=== PATIENT | female | born 1955 | race Caucasian/White ===

== ENCOUNTER 2022-04-28 16:17 | Inpatient (IN) | payer OTHER, MEDICARE ==
[~2022-04-28] VITALS: Ht 154.9 cm; Wt 63.5 kg
--- NOTE | 2022-04-28 18:15 | NUR ---
Received pt 67yrs female came from home for low hg b hx anemia diness any active bleeding
--- NOTE | 2022-04-28 18:20 | NUR ---
Examin by DR EUBANKS at bed side
--- NOTE | 2022-04-28 18:30 | NUR ---
BLOOD DROW by lab tach
--- NOTE | 2022-04-28 18:45 | NUR ---
INSERTED ANGO CATHETER G 20 ON RT WRIST
--- NOTE | 2022-04-28 19:00 | NUR ---
[facility] SENT [facility]
[2022-04-28 19:05] LABS: CALCIUM, SERUM 8.7 mg/dL (8.5-10.1); CARBON DIOXIDE 30 mmol/L (21-32); CHLORIDE 104 mmol/L (98-107); CREATININE 0.7 mg/dL (0.6-1.3); GLUCOSE 109 mg/dL (74-106); POTASSIUM 3.4 mmol/L (3.5-5.1); SODIUM SERUM 140 mmol/L (136-145); UREA NITROGEN, BLOOD 19 mg/dL (7-18)
[2022-04-28 19:11] LABS: ALANINE AMINOTRANSFERASE 17 U/L (12-78); ALBUMIN 3.7 g/dL (3.4-5.0); ALKALINE PHOSPHATASE 45 U/L (46-116); ASPARTATE AMINOTRANSFERASE 29 U/L (15-37); BILIRUBIN,DIRECT 0.3 mg/dL (0.0-0.2); TOTAL PROTEIN, SERUM 8.1 g/dL (6.4-8.2)
--- NOTE | 2022-04-28 19:25 | NUR ---
HAND OFF KITIN RN
[2022-04-28 19:52] LABS: BASOPHILS % (AUTO) 1.2 % (0.0-2.0); HEMATOCRIT 27 % (33-45); HEMOGLOBIN 8.9 g/dL (11.5-14.8); LYMPHOCYTES # (AUTO) 0.3 K/uL (0.8-4.8); LYMPHOCYTES % (AUTO) 26.4 % (20.0-44.0); MEAN CORPUSCULAR HGB CONC 33 g/dl (31.0-36.0); MEAN CORPUSCULAR VOLUME 83 fL (82-100); MONOCYTES # (AUTO) 0.1 K/uL (0.1-1.30); MONOCYTES % (AUTO) 7.3 % (2.0-12.0); NEUTROPHILS # (AUTO) 0.6 K/uL (1.8-8.9); NEUTROPHILS % (AUTO) 56.1 % (43.0-81.0); RED BLOOD CELL COUNT(AUTO) 3.26 MIL/uL (4.0-5.2)
[2022-04-28 20:00] LABS: PLATELET COUNT (AUTO) 45 K/uL (150-450)
--- NOTE | 2022-04-28 20:27 | NUR ---
JACQUELINE SENT TO LAB
[2022-04-28 21:20] LABS: BASOPHILS % (MANUAL) 0 % (0.0-2.0); EOSINOPHILS % (MANUAL) 2 % (0-4); LYMPHOCYTES % (MANUAL) 21 % (16-48); MONOCYTES % (MANUAL) 8 % (0-11.0); NEUTROPHILS % (MANUAL) 69 (42-76)
--- NOTE | 2022-04-28 21:46 | NUR ---
REPORT GIVEN TO [facility]
[2022-04-28] MEDS ORDERED: MAG HYDROX/AL HYDROX/SIMETH 30 ML UDC PO PRN (22:00)
[2022-04-28] MEDS ORDERED: Z GUARD REMEDY 4 OZ OINT TP PRN (22:00)
[2022-04-28] MEDS ORDERED: ACETAMINOPHEN 325 MG TABLET PO PRN (22:00)
[2022-04-28] MEDS ORDERED: HYDROCODONE/APAP 5/325MG TABLET PO PRN (22:00)
[2022-04-28] MEDS ORDERED: MAGNESIUM HYDROXIDE 30 ML UDC PO PRN (22:00)
[2022-04-28] MEDS ORDERED: MORPHINE SULFATE INJ 2 MG/ML DISP.SYRIN IV PRN (22:00)
[2022-04-28] MEDS ORDERED: ZOLPIDEM TARTRATE 5 MG TABLET PO PRN (22:00)
[2022-04-28] MEDS ORDERED: ONDANSETRON HCL/PF 4 MG/2 ML VIAL IVP PRN (22:00)
--- NOTE | 2022-04-28 22:05 | NUR ---
PT TRANSPORTED TO [facility] VIA [facility] IN STABLE CONDITION
--- NOTE | 2022-04-28 22:06 | NUR ---
MS DIRECTOR OF HUMAN RESOURCES NOTE PT TRANSPORTED VIA GURNEY TO UNIT AT THIS TIME. PT ADMITTED TO MS UNIT FROM ER UNDER DATABASE DEVELOPMENT PROJECT MANAGER HARINI FOR ADMITTING DX PANCYTOPENIA. A/O X4 AND ABLE TO MAKE NEEDS KNOWN. [place] AND [place] SPEAKING. PT AMBULATORY WITH CANE. PT STABLE ON ROOM AIR. NO SOB OR S/S OF RESPIRATORY DISTRESS. BREATHING EVEN AND UNLABORED. DENIES PAIN OR DISCOMFORT AT THIS TIME. PT NOTED WITH RLE DISCOLORATION, VENOUS DOPPLER ALREADY ORDERED. UPON ASSESSMENT, PT NOTED WITH R GROIN MASS. ABDOMEN ALSO FIRM ON LEFT SIDE, NO COMPLAINT OF PAIN WITH PALPATION. IV ACCESS R WRIST 20G, INTACT AND PATENT. PT ORIENTED TO ROOM, STAFF, AND UNIT. PT BELONGINGS ACCOUNTED FOR AND BELONGINGS LIST SIGNED. SAFETY PRECAUTIONS IN PLACE. BED IN LOWEST LOCKED POSITION, HOB ELEVATED, SIDE RAILS X2, AND CALL LIGHT AND TABLE WITHIN REACH. ALL NEEDS MET AT THIS TIME.
--- NOTE | 2022-04-29 05:49 | NUR ---
RN NOTE PT COMPLAINED OF PAIN 7/10 OF RIGHT LOWER LEG. ADMINISTERED NORCO 5-325 MG FOR MODERATE PAIN. MADE COMFORTABLE IN BED AND PROVIDED BLANKETS. ALL NEEDS MET AT THIS TIME.
[2022-04-29 06:37] LABS: BASOPHILS % (AUTO) 1.7 % (0.0-2.0); EOSINOPHILS % (AUTO) 8.1 % (0.0-6.0); HEMATOCRIT 24 % (33-45); HEMOGLOBIN 7.8 g/dL (11.5-14.8); LYMPHOCYTES # (AUTO) 0.3 K/uL (0.8-4.8); LYMPHOCYTES % (AUTO) 31.1 % (20.0-44.0); MEAN CORPUSCULAR HGB CONC 33 g/dl (31.0-36.0); MEAN CORPUSCULAR VOLUME 84 fL (82-100); MONOCYTES # (AUTO) 0.1 K/uL (0.1-1.30); NEUTROPHILS # (AUTO) 0.4 K/uL (1.8-8.9); NEUTROPHILS % (AUTO) 50.1 % (43.0-81.0); RED BLOOD CELL COUNT(AUTO) 2.83 MIL/uL (4.0-5.2)
--- NOTE | 2022-04-29 07:17 | NUR ---
MS RN CLOSING NOTE PT AWAKE IN BED. A/O X4 AND ABLE TO MAKE NEEDS KNOWN. [place] AND CITIZEN OF [place] SPEAKING. PT STABLE ON ROOM AIR. NO SOB OR S/S OF RESPIRATORY DISTRESS. BREATHING EVEN AND UNLABORED. DENIES PAIN OR DISCOMFORT AT THIS TIME. IV ACCESS R WRIST 20G, INTACT AND PATENT. SAFETY PRECAUTIONS IN PLACE AT ALL TIMES. BED IN LOWEST LOCKED POSITION, HOB ELEVATED, SIDE RAILS X2, AND CALL LIGHT AND TABLE WITHIN REACH. ALL NEEDS MET AT THIS TIME AND WILL ENDORSE TO ONCOMING NURSE FOR STEPHAN.
[2022-04-29 07:22] LABS: PLATELET COUNT (AUTO) 36 K/uL (150-450); WHITE BLOOD COUNT (AUTO) 0.8 K/uL (4.3-11.0)
[2022-04-29 07:24] LABS: CALCIUM, SERUM 8.3 mg/dL (8.5-10.1); CREATININE 0.7 mg/dL (0.6-1.3); MAGNESIUM 2.1 mg/dL (1.8-2.4); POTASSIUM 3.5 mmol/L (3.5-5.1)
[2022-04-29] MEDS ORDERED: PANTOPRAZOLE 40 MG TABLET.DR PO SCH (07:30)
--- NOTE | 2022-04-29 07:30 | NUR ---
MS RN OPENING NOTE RECEIVED PATIENT AWAKE IN BED. PATIENT IS A/O X4 .ABLE TO MAKE NEEDS KNOWN. [place] AND [place] SPEAKING. ON ROOM AIR AND TOLERATING WELL. NO SOB NOTED. NO PAIN OR DISCOMFORT NOTED. IV ACCESS RIGHT WRIST 20G, INTACT AND PATENT. ALL SAFETY PRECAUTIONS IN PLACE AT ALL TIMES. BED IN LOWEST LOCKED POSITION, HOB ELEVATED, SIDE RAILS X2, AND CALL LIGHT AND TABLE WITHIN REACH. ON REVERSE ISOLATION FOR PROTECTION OF THE PATIENT FOR LOW WBC COUNTS. WILL CONTINUE TO MONITOR CLOSELY.
[2022-04-29 07:38] LABS: PHOSPHORUS 3.6 mg/dL (2.5-4.9)
[2022-04-29 08:00] VITALS: BP 120/75
[2022-04-29] MEDS ORDERED: LOSA50TA39 PO (08:42)
[2022-04-29] MEDS ORDERED: PROP20TA19 PO (08:42)
[2022-04-29] MEDS ORDERED: FURO40TA5 PO (08:42)
[2022-04-29] MEDS ORDERED: SPIR50TA5 PO (08:42)
[2022-04-29] MEDS ORDERED: VALS160T29 PO (08:42)
[2022-04-29] MEDS ORDERED: ERGO500093 PO (08:42)
[2022-04-29] MEDS ORDERED: FERR325T23 PO (08:42)
[2022-04-29] MEDS ORDERED: ASPI-1420 PO (08:42)
[2022-04-29 13:13] LABS: THYROID STIMULATING HORMONE 4.186 uIU/mL (0.358-3.74)
[2022-04-29 15:22] VITALS: BP 131/71
[2022-04-29 16:58] LABS: BAND % (MANUAL) 8 % (0.0-5.0); BASOPHILS % (MANUAL) 0 % (0.0-2.0); EOSINOPHILS % (MANUAL) 3 % (0-4); LYMPHOCYTES % (MANUAL) 25 % (16-48); MONOCYTES % (MANUAL) 6 % (0-11.0); NEUTROPHILS % (MANUAL) 58 (42-76)
--- NOTE | 2022-04-29 17:00 | NUR ---
RN NOTES AROUND 1700 LOAN FROM [facility] CALLED AND WANTED TO GIVE INFORMATION FOR THE PATIENT'S TRANSFER TO THAT HOSPITAL , PATIENT STRONGLY REFUSED TO BE TRANSFERRED. SHE STATED SHE ONLY WANTS TO STAY IN THIS HOSPITAL AND DOES NOT WANT TO GO ANYWHERE. THE CALL WITH LOAN WAS TRANSFERRED TO ANGELES THE DYNAMITE PACKING MACHINE OPERATOR. AFTER CALL ANGELES CAME TO SEE THE PATIENT, ANGELES AND CHARGE NURSE NADIYA SPOKE TO THE PATIENT ABOUT THE TREATMENTS AND IMPORTANCE OF THE HOSPITAL STAY. THE PATIENT STRONGLY REFUSED TO BE TRANSFERRED TO OTHER HOSPITAL SINCE HER INSURANCE WAS NOT COVERING ANYMORE IN [facility]. PATIENT STATED SHE WILL LEAVE HOSPITAL AMA. SHE ONLY WANTS TO STAY THIS HOSPITAL OR SHE WILL LEAVE AMA. PATIENT VERBALIZED UNDERSTANDING OF SIGNING THE PAPER OF THE AMA. SHE KNEW THE RISKS AND DANGERS OF LEAVING HOSPITAL IN HER CONDITION AMA, BUT STILL INSIST TO LEAVE AMA. PATIENT LEFT HOSPITAL WITH THE AT 1830. , CHARGE NURSE AND DYNAMITE PACKING MACHINE OPERATOR AWARE OF PATIENT'S LEAVE.
[2022-04-29 17:54] LABS: BILIRUBIN,URINE NEGATIVE (NEGATIVE); COLOR,URINE YELLOW (YELLOW); LEUKOCYTE ESTERASE ,URINE SMALL (NEGATIVE); NITRITE, URINE NEGATIVE (NEGATIVE); PROTEIN,URINE NEGATIVE (NEGATIVE); UGLUCOSE NEGATIVE (NEGATIVE); UROBILINOGEN,URINE 0.2 EU/dL (0.2)
[2022-04-29 17:56] LABS: OCCULT BLOOD STOOL NEGATIVE (NEGATIVE)
[2022-04-29 18:00] LABS: BACTERIA,URINE Rare /HPF (None Seen); RBC,URINE 0-2 /HPF (0-2); SQUAMOUS EPITHELIAL CELL,UR Few /HPF (None Seen)
[2022-04-30 07:07] LABS: IMMUNOGLOBULIN A, SERUM 413 mg/dL (87-352); IMMUNOGLOBULIN G, SERUM 1883 mg/dL (586-1602); IMMUNOGLOBULIN M, SERUM 156 mg/dL (26-217)
[2022-04-30 09:07] LABS: *ANA ANTI-CENTROMERE B AB <0.2 AI (0.0-0.9); *ANA ANTI-DNA(DS) AB, QN 1 IU/mL (0-9); *ANA ANTI-JO-1 <0.2 AI (0.0-0.9); *ANA ANTICHROMATIN ANTIBODY <0.2 AI (0.0-0.9); *ANA RNP ANTIBODIES 0.3 AI (0.0-0.9); *ANA SJOGREN'S ANTI-SS-A >8.0 AI (0.0-0.9); *ANA SJOGREN'S ANTI-SS-B 0.5 AI (0.0-0.9); *ANAANTI-SCLERODERMA-70 AB <0.2 AI (0.0-0.9); *ANASMITH AB <0.2 AI (0.0-0.9)
[2022-04-30 11:07] LABS: *SPE ALPHA-1-GLOBULIN 0.3 g/dL (0.0-0.4); *SPE ALPHA-2-GLOBULIN 0.4 g/dL (0.4-1.0); *SPE BETA GLOBULIN 1.2 g/dL (0.7-1.3); *SPE M-SPIKE Not Observed g/dL (Not Observed)
== END 2022-04-29 18:51 | disposition left against medical advice (07) | DRG 660 ==
LOC: ER 16:25 → MED 21:39
PROVIDERS: ADMIT Nurse Practitioner Acute Care; ATTEND Nurse Practitioner Acute Care
DX: D61.818 Other pancytopenia (principal); D68.9 Coagulation defect, unspecified; D72.10 Eosinophilia, unspecified; I82.511 Chronic embolism and thrombosis of right femoral vein; D50.9 Iron deficiency anemia, unspecified; I10 Essential (primary) hypertension; Z20.822 Contact with and (suspected) exposure to COVID-19; K74.60 Unspecified cirrhosis of liver; R42 Dizziness and giddiness; Z95.828 Presence of other vascular implants and grafts; M71.22 Synovial cyst of popliteal space [Baker], left knee
CPT/HCPCS: 36415; 70450-TC; 71045-TC; 74018; 80048-TC; 80076-TC; 81001; 82272-TC; 82607-TC; 82728-TC; 82784; 83540-TC; 83735-TC; 84100-TC; 84155; 84165; 84443-TC; 84484-TC; 85025-TC; 85730-TC; 86225; 86235; 86334; 86431-TC; 86706; 86803; 86850-TC; 87040-TC; 87081-TC; 87086-TC; 87340; 87806; 93970-TC; C9803; G0378

== ENCOUNTER 2023-05-12 11:19 | Emergency (ER) | payer MEDICARE, OTHER ==
[~2023-05-12] VITALS: Ht 167.6 cm; Wt 60.3 kg
[~2023-05-12 11:19] MED LIST: ASPI-1420 PO; ERGO500093 PO; FERR325T23 PO; FURO40TA5 PO; LOSA50TA39 PO; PROP20TA19 PO; SPIR50TA5 PO; VALS160T29 PO
[2023-05-12] MEDS ORDERED: IV NS 0.9% 1,000 ML BAG IV ONE (11:30)
[2023-05-12] MEDS ORDERED: ONDANSETRON HCL/PF 4 MG/2 ML VIAL IVP ONE (11:30)
[2023-05-12 11:47] LABS: BASOPHILS # (AUTO) 0.1 K/uL (0.0-0.2); BASOPHILS % (AUTO) 0.8 % (0.0-2.0); EOSINOPHILS # (AUTO) 0.2 K/uL (0.0-0.7); EOSINOPHILS % (AUTO) 1.7 % (0.0-6.0); HEMATOCRIT 26 % (33-45); HEMOGLOBIN 8.9 g/dL (11.5-14.8); LYMPHOCYTES # (AUTO) 0.5 K/uL (0.8-4.8); LYMPHOCYTES % (AUTO) 4.1 % (20.0-44.0); MEAN CORPUSCULAR HEMOGLOBIN 31 PG (26.0-33.0); MEAN CORPUSCULAR HGB CONC 34 g/dl (31.0-36.0); MEAN CORPUSCULAR VOLUME 91 fL (82-100); MONOCYTES # (AUTO) 0.5 K/uL (0.1-1.30); MONOCYTES % (AUTO) 4.3 % (2.0-12.0); NEUTROPHILS # (AUTO) 10.4 K/uL (1.8-8.9); NEUTROPHILS % (AUTO) 89.1 % (43.0-81.0); PLATELET COUNT (AUTO) 139 K/uL (150-450); RED BLOOD CELL COUNT(AUTO) 2.88 MIL/uL (4.0-5.2); RED CELL DISTRIBUTION WIDTH 19.5 % (11.5-15.0); WHITE BLOOD COUNT (AUTO) 11.6 K/uL (4.3-11.0)
[2023-05-12] MEDS ORDERED: ONDANSETRON HCL/PF 4 MG/2 ML VIAL ONE (11:50)
[2023-05-12 12:41] LABS: ALANINE AMINOTRANSFERASE 22 U/L (12-78); ALBUMIN 2.9 g/dL (3.4-5.0); ALKALINE PHOSPHATASE 53 U/L (46-116); ASPARTATE AMINOTRANSFERASE 47 U/L (15-37); BILIRUBIN,DIRECT 1.1 mg/dL (0.0-0.2); BILIRUBIN,TOTAL 2.5 mg/dL (0.2-1.0); CALCIUM, SERUM 8.3 mg/dL (8.5-10.1); CARBON DIOXIDE 21 mmol/L (21-32); CHLORIDE 98 mmol/L (98-107); CREATININE 1.9 mg/dL (0.6-1.3); GLUCOSE 139 mg/dL (74-106); LIPASE 17 U/L (16-77); POTASSIUM 3.7 mmol/L (3.5-5.1); SODIUM SERUM 132 mmol/L (136-145); UREA NITROGEN, BLOOD 42 mg/dL (7-18)
[2023-05-12] MEDS ORDERED: CEFTRIAXONE 1GM BAG (ER ONLY) 50 ML IV ONE ×2 (14:00→15:00)
[2023-05-12] MEDS ORDERED: FLAGYL/NS RTU 500 MG/100 ML PIGGYBACK IV ONE (14:00)
[2023-05-12] MEDS ORDERED: METRONIDAZOLE 500MG/ NS 100ML 100 ML IV ONE (15:02)
[2023-05-12 16:41] VITALS: BP 108/67; TEMP 98; O2SAT 100
[2023-05-12 17:08] LABS: APPEARANCE,URINE CLEAR (CLEAR); BILIRUBIN,URINE 2+ (NEGATIVE); BLOOD, URINE 1+ Ery/uL (NEGATIVE); COLOR,URINE DARK YELLOW (YELLOW); KETONES,URINE TRACE mg/dL (NEGATIVE); LEUKOCYTE ESTERASE ,URINE NEGATIVE (NEGATIVE); NITRITE, URINE POSITIVE (NEGATIVE); PROTEIN,URINE TRACE mg/dl (NEGATIVE); UGLUCOSE NEGATIVE (NEGATIVE); UROBILINOGEN,URINE 0.2 EU/dL (0.2)
[2023-05-12 17:46] LABS: ADD URINE CULTURE YES; BACTERIA,URINE 1+ /HPF (None Seen); HYALINE CASTS, URINE Few /LPF (None Seen); SQUAMOUS EPITHELIAL CELL,UR Few /HPF (None Seen); WBC,URINE 0-2 /HPF (0-3)
[2023-05-14 02:07] LABS: HBSAG SCREEN Negative (Negative); HEPATITIS A AB, IgM Negative (Negative); HEPATITIS B CORE AB, IgM Negative (Negative)
== END 2023-05-12 16:41 | disposition short-term general hospital (02) ==
LOC: ER 11:22
DX: N17.9 Acute kidney failure, unspecified (principal); D64.9 Anemia, unspecified; K52.9 Noninfective gastroenteritis and colitis, unspecified; K74.60 Unspecified cirrhosis of liver; K76.7 Hepatorenal syndrome; R11.2 Nausea with vomiting, unspecified; D72.829 Elevated white blood cell count, unspecified; D69.6 Thrombocytopenia, unspecified; I10 Essential (primary) hypertension
CPT/HCPCS: 99285; 74176; 96365; 76705; 71045; 96361; 96375; 96368; 93005; 80074; 85025; 80048; 87040 ×2; 87086; 83690; 80076; 81001; 36415; 84484; 82962; J2405; J7030; J0696; A4223

== ENCOUNTER 2023-06-15 17:12 | Inpatient (IN) | payer MEDICARE, OTHER ==
[~2023-06-15] VITALS: Ht 152.4 cm; Wt 64.4 kg
[2023-06-15] MEDS ORDERED: IV NS 0.9% 1,000 ML BAG IV ONE ×2 (17:30→19:30)
[2023-06-15] MEDS ORDERED: APIX5TAB PO (18:07)
[2023-06-15] MEDS ORDERED: CARV12.52 PO (18:07)
[2023-06-15] MEDS ORDERED: BENZ-13 PO (18:07)
[2023-06-15] MEDS ORDERED: OXYC5CAP18 PO (18:07)
[2023-06-15] MEDS ORDERED: POLY17PO4 PO (18:07)
[2023-06-15] MEDS ORDERED: PANT40TA2 PO (18:07)
[2023-06-15 18:28] LABS: BASOPHILS # (AUTO) 0.1 K/uL (0.0-0.2); BASOPHILS % (AUTO) 1.8 % (0.0-2.0); EOSINOPHILS # (AUTO) 0.2 K/uL (0.0-0.7); EOSINOPHILS % (AUTO) 4.5 % (0.0-6.0); HEMATOCRIT 22 % (33-45); HEMOGLOBIN 7.4 g/dL (11.5-14.8); LYMPHOCYTES # (AUTO) 0.5 K/uL (0.8-4.8); LYMPHOCYTES % (AUTO) 14.2 % (20.0-44.0); MEAN CORPUSCULAR HEMOGLOBIN 34 PG (26.0-33.0); MEAN CORPUSCULAR HGB CONC 34 g/dl (31.0-36.0); MEAN CORPUSCULAR VOLUME 102 fL (82-100); MONOCYTES # (AUTO) 0.1 K/uL (0.1-1.30); MONOCYTES % (AUTO) 2.8 % (2.0-12.0); NEUTROPHILS # (AUTO) 2.8 K/uL (1.8-8.9); NEUTROPHILS % (AUTO) 76.7 % (43.0-81.0); PLATELET COUNT (AUTO) 151 K/uL (150-450); RED BLOOD CELL COUNT(AUTO) 2.17 MIL/uL (4.0-5.2); RED CELL DISTRIBUTION WIDTH 22.5 % (11.5-15.0); WHITE BLOOD COUNT (AUTO) 3.7 K/uL (4.3-11.0)
[2023-06-15 18:40] LABS: INR 1.26 (0.91-1.10); PARTIAL THROMBOPLASTIN TIME 28.2 SEC (24.3-34.3); PROTHROMBIN TIME 13.2 SECS (9.2-11.1)
[2023-06-15 18:48] LABS: ALANINE AMINOTRANSFERASE 49 U/L (12-78); ALBUMIN 2.8 g/dL (3.4-5.0); ALKALINE PHOSPHATASE 88 U/L (46-116); ASPARTATE AMINOTRANSFERASE 80 U/L (15-37); BILIRUBIN,DIRECT 1.6 mg/dL (0.0-0.2); BILIRUBIN,TOTAL 3.2 mg/dL (0.2-1.0); CALCIUM, SERUM 8.7 mg/dL (8.5-10.1); CARBON DIOXIDE 30 mmol/L (21-32); CHLORIDE 100 mmol/L (98-107); CREATININE 0.7 mg/dL (0.6-1.3); GLUCOSE 142 mg/dL (74-106); POTASSIUM 3.6 mmol/L (3.5-5.1); SODIUM SERUM 136 mmol/L (136-145); TOTAL PROTEIN, SERUM 7.2 g/dL (6.4-8.2); UREA NITROGEN, BLOOD 18 mg/dL (7-18)
[2023-06-15] MEDS ORDERED: IV NS 0.9% 250 ML IV ONE (19:21)
[2023-06-15] MEDS ORDERED: CT SWABBABLE VALVE TRANS SET 1 EA INFUS.SET MC ONE (19:21)
[2023-06-15] MEDS ORDERED: IOHEXOL-300 100 ML VIAL IV ONE (19:21)
[2023-06-15] MEDS ORDERED: KETOROLAC TROMETHAMINE 15 MG/ML VIAL IV ONE (19:30)
[2023-06-15] MEDS ORDERED: MIDODRINE HCL (5MG) 5 MG TABLET PO SCH (19:30)
[2023-06-15] MEDS ORDERED: MIDODRINE HCL (5MG) 5 MG TABLET ONE (19:38)
[2023-06-15] MEDS ORDERED: KETOROLAC TROMETHAMINE 15 MG/ML VIAL ONE (19:38)
[2023-06-15 20:08] LABS: INR 1.31 (0.91-1.10); PARTIAL THROMBOPLASTIN TIME 30.8 SEC (24.3-34.3); PROTHROMBIN TIME 13.6 SECS (9.2-11.1)
[2023-06-15 20:18] LABS: ANISOCYTOSIS 1+; EOSINOPHILS % (MANUAL) 1 % (0-4); LYMPHOCYTES % (MANUAL) 13 % (16-48); MONOCYTES % (MANUAL) 2 % (0-11.0); NEUTROPHILS % (MANUAL) 84 (42-76); OVALOCYTES 1+; PLATELET ESTIMATE ADEQUATE
[2023-06-15 20:25] VITALS: BP 88/50; TEMP 97.6; O2SAT 99
[2023-06-15 20:30] VITALS: BP 102/61; TEMP 97.6
[2023-06-15] MEDS ORDERED: MAGNESIUM HYDROXIDE 30 ML UDC PO PRN (23:00)
[2023-06-15] MEDS ORDERED: ACETAMINOPHEN 325 MG TABLET PO PRN (23:00)
[2023-06-15] MEDS ORDERED: Z GUARD REMEDY 4 OZ OINT TP PRN (23:00)
[2023-06-15] MEDS ORDERED: ONDANSETRON HCL/PF 4 MG/2 ML VIAL IVP PRN (23:00)
[2023-06-15] MEDS ORDERED: oxyCODONE IR immediate release 5 MG PO PRN (23:00)
[2023-06-15] MEDS ORDERED: MAG HYDROX/AL HYDROX/SIMETH 30 ML UDC PO PRN (23:00)
[2023-06-15] MEDS ORDERED: ZOLPIDEM TARTRATE 5 MG TABLET PO PRN (23:00)
[2023-06-16] VITALS (7 sets, daily range): BP systolic 98–116; BP diastolic 52–66; TEMP 97.6–99.7; O2SAT 97–100
[2023-06-16] MEDS: IV NS 0.9% 1,000 ML IV PRN ×2 (00:10→09:18)
[2023-06-16 05:56] LABS: BASOPHILS % (AUTO) 1.2 % (0.0-2.0); EOSINOPHILS # (AUTO) 0.1 K/uL (0.0-0.7); EOSINOPHILS % (AUTO) 2.9 % (0.0-6.0); LYMPHOCYTES # (AUTO) 0.5 K/uL (0.8-4.8); LYMPHOCYTES % (AUTO) 22.1 % (20.0-44.0); MEAN CORPUSCULAR HEMOGLOBIN 35 PG (26.0-33.0); MEAN CORPUSCULAR HGB CONC 34 g/dl (31.0-36.0); MEAN CORPUSCULAR VOLUME 101 fL (82-100); MONOCYTES # (AUTO) 0.2 K/uL (0.1-1.30); MONOCYTES % (AUTO) 7.7 % (2.0-12.0); NEUTROPHILS # (AUTO) 1.5 K/uL (1.8-8.9); NEUTROPHILS % (AUTO) 66.1 % (43.0-81.0); PLATELET COUNT (AUTO) 114 K/uL (150-450); RED CELL DISTRIBUTION WIDTH 22.8 % (11.5-15.0); WHITE BLOOD COUNT (AUTO) 2.3 K/uL (4.3-11.0)
[2023-06-16 06:12] LABS: ALBUMIN 2.3 g/dL (3.4-5.0); BILIRUBIN,DIRECT 1.1 mg/dL (0.0-0.2); BILIRUBIN,TOTAL 2.7 mg/dL (0.2-1.0); CREATININE 0.6 mg/dL (0.6-1.3); MAGNESIUM 1.8 mg/dL (1.8-2.4); PHOSPHORUS 4.1 mg/dL (2.5-4.9); POTASSIUM 3.3 mmol/L (3.5-5.1); TOTAL PROTEIN, SERUM 6.1 g/dL (6.4-8.2)
[2023-06-16 06:18] LABS: THYROID STIMULATING HORMONE 2.302 uIU/mL (0.358-3.74)
[2023-06-16 06:58] LABS: RED BLOOD CELL COUNT(AUTO) 1.81 MIL/uL (4.0-5.2)
[2023-06-16 07:00] LABS: HEMATOCRIT 18 % (33-45); HEMOGLOBIN 6.3 g/dL (11.5-14.8)
[2023-06-16] MEDS: POLYETHYLENE GLYCOL 3350 17 GM POWD.PACK PO SCH (09:00)
[2023-06-16] MEDS: CARVEDILOL 12.5 MG TABLET PO SCH ×2 (09:00→21:39)
[2023-06-16] MEDS: PANTOPRAZOLE 40 MG VIAL IV SCH (09:11)
[2023-06-16] MEDS ORDERED: POTASSIUM CHLORIDE 20 MEQ TAB.PRT.SR PO ONE (10:00)
[2023-06-16 10:39] LABS: ANISOCYTOSIS 1+; BASOPHILS % (MANUAL) 0 % (0.0-2.0); EOSINOPHILS % (MANUAL) 3 % (0-4); HYPOCHROMASIA 1+; LYMPHOCYTES % (MANUAL) 18 % (16-48); MONOCYTES % (MANUAL) 10 % (0-11.0); NEUTROPHILS % (MANUAL) 69 (42-76); OVALOCYTES 1+; PLATELET ESTIMATE DECREASED; TEAR DROP CELLS 1+
[2023-06-16 19:30] LABS: OCCULT BLOOD STOOL POSITIVE (NEGATIVE)
[2023-06-17] VITALS: BP 102/62; TEMP 99.4; O2SAT 99
[2023-06-17] MEDS: BENZONATATE 100 MG CAPSULE PO PRN ×3 (02:14→17:46)
[2023-06-17 04:00] VITALS: BP 123/74; TEMP 98.6; O2SAT 96
[2023-06-17 06:22] LABS: BASOPHILS % (AUTO) 1.2 % (0.0-2.0); EOSINOPHILS # (AUTO) 0.1 K/uL (0.0-0.7); EOSINOPHILS % (AUTO) 3.7 % (0.0-6.0); LYMPHOCYTES # (AUTO) 0.6 K/uL (0.8-4.8); LYMPHOCYTES % (AUTO) 18.2 % (20.0-44.0); MEAN CORPUSCULAR HEMOGLOBIN 35 PG (26.0-33.0); MEAN CORPUSCULAR HGB CONC 34 g/dl (31.0-36.0); MEAN CORPUSCULAR VOLUME 102 fL (82-100); MONOCYTES # (AUTO) 0.2 K/uL (0.1-1.30); MONOCYTES % (AUTO) 7.4 % (2.0-12.0); NEUTROPHILS # (AUTO) 2.1 K/uL (1.8-8.9); NEUTROPHILS % (AUTO) 69.5 % (43.0-81.0); PLATELET COUNT (AUTO) 147 K/uL (150-450); RED CELL DISTRIBUTION WIDTH 21.9 % (11.5-15.0); WHITE BLOOD COUNT (AUTO) 3.1 K/uL (4.3-11.0)
[2023-06-17 06:29] LABS: INR 1.25 (0.91-1.10); PROTHROMBIN TIME 13.1 SECS (9.2-11.1)
[2023-06-17 06:52] LABS: ALBUMIN 2.3 g/dL (3.4-5.0); BILIRUBIN,DIRECT 0.8 mg/dL (0.0-0.2); CALCIUM, SERUM 7.9 mg/dL (8.5-10.1); CREATININE 0.6 mg/dL (0.6-1.3); POTASSIUM 3.8 mmol/L (3.5-5.1); TOTAL PROTEIN, SERUM 6.2 g/dL (6.4-8.2)
[2023-06-17 06:55] LABS: HEMATOCRIT 19 % (33-45); RED BLOOD CELL COUNT(AUTO) 1.84 MIL/uL (4.0-5.2)
[2023-06-17 06:56] LABS: HEMOGLOBIN 6.4 g/dL (11.5-14.8)
[2023-06-17 07:30] VITALS: BP 122/67; TEMP 98.4; O2SAT 100
[2023-06-17] MEDS: PANTOPRAZOLE 40 MG VIAL IV SCH (08:39)
[2023-06-17] MEDS: CARVEDILOL 12.5 MG TABLET PO SCH ×2 (08:39→21:46)
[2023-06-17] MEDS: POLYETHYLENE GLYCOL 3350 17 GM POWD.PACK PO SCH (08:40)
[2023-06-17 10:58] LABS: ANISOCYTOSIS 1+; BAND % (MANUAL) 2 % (0.0-5.0); BASOPHILS % (MANUAL) 0 % (0.0-2.0); EOSINOPHILS % (MANUAL) 3 % (0-4); HYPOCHROMASIA 1+; LYMPHOCYTES % (MANUAL) 14 % (16-48); MONOCYTES % (MANUAL) 8 % (0-11.0); NEUTROPHILS % (MANUAL) 73 (42-76); OVALOCYTES 1+; PLATELET ESTIMATE ADEQUATE; TEAR DROP CELLS 1+
[2023-06-17 16:00] VITALS: BP_SYST 113; BP_DIAS 70; BP_DIAS 74; TEMP 97.9; TEMP 99.2; O2SAT 99
[2023-06-17 20:00] VITALS: BP 120/66; TEMP 97; TEMP 98.1; O2SAT 100
[2023-06-17] MEDS: IV NS 0.9% 1,000 ML IV PRN (22:19)
[2023-06-18] VITALS: BP 94/50; TEMP 97.7; O2SAT 98
[2023-06-18 04:00] VITALS: BP 92/51; TEMP 97.9; O2SAT 97
[2023-06-18 07:00] VITALS: BP 93/62; TEMP 98.1; O2SAT 100
[2023-06-18] MEDS: PANTOPRAZOLE 40 MG TABLET.DR PO SCH (07:47)
[2023-06-18 07:59] LABS: EOSINOPHILS # (AUTO) 0.1 K/uL (0.0-0.7); EOSINOPHILS % (AUTO) 4.9 % (0.0-6.0); LYMPHOCYTES # (AUTO) 0.5 K/uL (0.8-4.8); LYMPHOCYTES % (AUTO) 22.6 % (20.0-44.0); MEAN CORPUSCULAR HEMOGLOBIN 35 PG (26.0-33.0); MEAN CORPUSCULAR HGB CONC 33 g/dl (31.0-36.0); MEAN CORPUSCULAR VOLUME 105 fL (82-100); MONOCYTES # (AUTO) 0.2 K/uL (0.1-1.30); MONOCYTES % (AUTO) 7.8 % (2.0-12.0); NEUTROPHILS # (AUTO) 1.3 K/uL (1.8-8.9); NEUTROPHILS % (AUTO) 63.7 % (43.0-81.0); PLATELET COUNT (AUTO) 135 K/uL (150-450); RED CELL DISTRIBUTION WIDTH 22.6 % (11.5-15.0)
[2023-06-18] MEDS: CARVEDILOL 12.5 MG TABLET PO SCH ×2 (08:17→21:23)
[2023-06-18] MEDS: POLYETHYLENE GLYCOL 3350 17 GM POWD.PACK PO SCH (08:18)
[2023-06-18 08:39] LABS: HEMATOCRIT 17 % (33-45); HEMOGLOBIN 5.6 g/dL (11.5-14.8)
[2023-06-18 09:06] LABS: CALCIUM, SERUM 7.7 mg/dL (8.5-10.1); CREATININE 0.5 mg/dL (0.6-1.3); MAGNESIUM 1.7 mg/dL (1.8-2.4); POTASSIUM 3.8 mmol/L (3.5-5.1)
[2023-06-18] MEDS ORDERED: MAGNESIUM OXIDE 400 MG TABLET PO ONE (10:00)
[2023-06-18] MEDS: BENZONATATE 100 MG CAPSULE PO PRN (10:30)
[2023-06-18] MEDS: IV NS 0.9% 1,000 ML IV PRN ×2 (10:31→18:37)
[2023-06-18 11:48] LABS: BAND % (MANUAL) 2 % (0.0-5.0); BASOPHILS % (MANUAL) 0 % (0.0-2.0); EOSINOPHILS % (MANUAL) 5 % (0-4); LYMPHOCYTES % (MANUAL) 18 % (16-48); MONOCYTES % (MANUAL) 10 % (0-11.0); NEUTROPHILS % (MANUAL) 65 (42-76); PLATELET ESTIMATE ADEQUATE
[2023-06-18 11:49] LABS: ANISOCYTOSIS 1+; HYPOCHROMASIA 1+; OVALOCYTES 1+; STOMATOCYTES 1+; TEAR DROP CELLS 1+
[2023-06-18 12:08] VITALS: BP 109/63; TEMP 98; O2SAT 99
[2023-06-18] MEDS ORDERED: EPOETIN ALFA (10,000 UNIT) 10,000 UNIT/ML VIAL SQ SCH (14:30)
[2023-06-18] MEDS ORDERED: EPOETIN ALFA (10,000 UNIT) 10,000 UNIT/ML VIAL SQ ONE (15:00)
[2023-06-18 16:00] VITALS: BP 112/65; TEMP 98; O2SAT 99
[2023-06-18 20:00] VITALS: BP 132/73; TEMP 97.9; O2SAT 100
[2023-06-19] MEDS: PANTOPRAZOLE 40 MG TABLET.DR PO SCH ×2 (07:30→09:38)
[2023-06-19 07:38] LABS: BASOPHILS # (AUTO) 0.1 K/uL (0.0-0.2); BASOPHILS % (AUTO) 2.8 % (0.0-2.0); EOSINOPHILS # (AUTO) 0.1 K/uL (0.0-0.7); EOSINOPHILS % (AUTO) 6.7 % (0.0-6.0); LYMPHOCYTES # (AUTO) 0.4 K/uL (0.8-4.8); LYMPHOCYTES % (AUTO) 18.3 % (20.0-44.0); MEAN CORPUSCULAR HEMOGLOBIN 35 PG (26.0-33.0); MEAN CORPUSCULAR HGB CONC 33 g/dl (31.0-36.0); MEAN CORPUSCULAR VOLUME 106 fL (82-100); MONOCYTES # (AUTO) 0.2 K/uL (0.1-1.30); MONOCYTES % (AUTO) 7.1 % (2.0-12.0); NEUTROPHILS # (AUTO) 1.5 K/uL (1.8-8.9); NEUTROPHILS % (AUTO) 65.1 % (43.0-81.0); PLATELET COUNT (AUTO) 142 K/uL (150-450); RED CELL DISTRIBUTION WIDTH 22.2 % (11.5-15.0); WHITE BLOOD COUNT (AUTO) 2.2 K/uL (4.3-11.0)
[2023-06-19 07:47] LABS: RED BLOOD CELL COUNT(AUTO) 1.67 MIL/uL (4.0-5.2)
[2023-06-19 07:49] LABS: CALCIUM, SERUM 7.8 mg/dL (8.5-10.1); CREATININE 0.6 mg/dL (0.6-1.3); HEMATOCRIT 18 % (33-45); HEMOGLOBIN 5.9 g/dL (11.5-14.8); MAGNESIUM 1.8 mg/dL (1.8-2.4); PHOSPHORUS 3.4 mg/dL (2.5-4.9); POTASSIUM 3.6 mmol/L (3.5-5.1)
[2023-06-19 08:00] VITALS: BP 117/72; TEMP 99; O2SAT 100
[2023-06-19 09:00] VITALS: BP 117/72
[2023-06-19] MEDS: CARVEDILOL 12.5 MG TABLET PO SCH ×2 (09:00→09:39)
[2023-06-19] MEDS: POLYETHYLENE GLYCOL 3350 17 GM POWD.PACK PO SCH ×2 (09:00→09:38)
[2023-06-19 12:36] LABS: ANISOCYTOSIS 1+; BAND % (MANUAL) 2 % (0.0-5.0); BASOPHILS % (MANUAL) 0 % (0.0-2.0); EOSINOPHILS % (MANUAL) 3 % (0-4); HYPOCHROMASIA 1+; LYMPHOCYTES % (MANUAL) 16 % (16-48); MONOCYTES % (MANUAL) 9 % (0-11.0); NEUTROPHILS % (MANUAL) 70 (42-76); OVALOCYTES 1+; PLATELET ESTIMATE ADEQUATE; TEAR DROP CELLS 1+
== END 2023-06-19 12:30 | disposition left against medical advice (07) | DRG 378 ==
LOC: ER 17:15 → TELE 19:55
PROVIDERS: ADMIT Student in an Organized Health Care Education/Training Program; ATTEND Nurse Practitioner Acute Care
DX: K92.2 Gastrointestinal hemorrhage, unspecified (principal); D62 Acute posthemorrhagic anemia; R18.8 Other ascites; D68.69 Other thrombophilia; K76.6 Portal hypertension; I85.10 Secondary esophageal varices without bleeding; K80.70 Calculus of gallbladder and bile duct without cholecystitis without obstruction; E86.1 Hypovolemia; R55 Syncope and collapse; K74.60 Unspecified cirrhosis of liver; I10 Essential (primary) hypertension; D64.9 Anemia, unspecified; K82.8 Other specified diseases of gallbladder; Z79.01 Long term (current) use of anticoagulants; Z86.718 Personal history of other venous thrombosis and embolism; R74.01 Elevation of levels of liver transaminase levels; I35.1 Nonrheumatic aortic (valve) insufficiency; R16.1 Splenomegaly, not elsewhere classified
CPT/HCPCS: 36415; 71045-TC; 74181-TC; 80048-TC; 80053-TC; 80076-TC; 82272-TC; 83735-TC; 83880; 84100-TC; 84443-TC; 84484-TC; 85025-TC; 85610-TC; 85730-TC; 86850-TC; 93307-TC; A4223; C9113; G0378; J0885; J1885; J7030; J7050; Q9967